=== PATIENT | male | born 1960 | race African-American/Black ===

== ENCOUNTER 2019-09-26 15:46 | Emergency (ER) | payer MEDICAID ==
[~2019-09-26] VITALS: Ht 175.3 cm; Wt 81.7 kg
[2019-09-26 16:25] LABS: GLUCOSE,POINT OF CARE 76 MG/DL (70-110)
[2019-09-26 16:41] VITALS: BP 144/89
== END 2019-09-26 17:14 | disposition left against medical advice (07) ==
LOC: EMS 15:47
DX: N18.6 End stage renal disease (principal); Z99.2 Dependence on renal dialysis; R55 Syncope and collapse